=== PATIENT | female | born 1935 | race Caucasian/White ===

== ENCOUNTER → 2016-09-07 | Outpatient (CLI) | payer MEDICARE, OTHER ==
[2016-03-17 17:47] VITALS: BP 153/75
[~2016-09-07] MED LIST: ACET-704 PO
[2016-09-07 12:35] LABS: BACTERIA,URINE 0 /HPF (0-FEW); BILIRUBIN,URINE NEG (NEG); CLARITY,URINE CLEAR; COLOR,URINE AMBER; GLUCOSE,URINE NEG (NEG); NITRITE,URINE NEG (NEG); RBC,URINE RARE /HPF (0-2); SQUAMOUS EPITHELIAL CELL,UR OCC /LPF; UROBILINOGEN,URINE 1 mg/dL (0.2 mg/dL); WBC,URINE 0 /HPF (0-4)
== END | disposition home or self-care (01) ==
LOC: SPEC 12:05
PROVIDERS: ATTEND Internal Medicine
DX: Z00.01 Encounter for general adult medical examination with abnormal findings (principal); N39.0 Urinary tract infection, site not specified
CPT/HCPCS: 81001

== ENCOUNTER → 2016-11-16 | Outpatient (CLI) | payer MEDICARE, OTHER ==
[2016-03-17 17:47] VITALS: BP 153/75
--- NOTE | 2016-11-16 11:54 | RAD ---
Indication pain associated with a fall. AP and lateral views of the right femur were obtained. There is some slight degenerative change at the hip. No fracture or acute bony finding involving the femur is seen. Total knee prosthesis is noted. IMPRESSION: No acute bony finding seen associated with the right femur
== END | disposition home or self-care (01) ==
LOC: DXRAD 11:10
PROVIDERS: ATTEND Internal Medicine
DX: M79.604 Pain in right leg (principal); W19.XXXA Unspecified fall, initial encounter
CPT/HCPCS: 73552

== ENCOUNTER → 2016-11-30 | Outpatient (CLI) | payer MEDICARE, OTHER ==
[2016-03-17 17:47] VITALS: BP 153/75
[2016-11-30 08:14] LABS: ALBUMIN 3.6 g/dL (3.4-5.0); ALBUMIN/GLOBULIN RATIO 1.3 (1.0-1.7); CALCIUM 8.4 mg/dL (8.5-10.1); CREATININE 0.6 mg/dL (0.6-1.0); GFR 95.9; POTASSIUM 3.8 mmol/L (3.5-5.1); TOTAL BILIRUBIN 0.9 mg/dL (0.2-1.0); TOTAL PROTEIN 6.4 g/dL (6.4-8.2)
== END | disposition home or self-care (01) ==
LOC: SPEC 07:22
PROVIDERS: ATTEND Internal Medicine
DX: E78.5 Hyperlipidemia, unspecified (principal)
CPT/HCPCS: 36415; 80053; 80061

== ENCOUNTER → 2017-03-13 | Outpatient (CLI) | payer MEDICARE, OTHER ==
[2016-03-17 17:47] VITALS: BP 153/75
== END | disposition home or self-care (01) ==
LOC: SPEC 12:03
PROVIDERS: ATTEND Internal Medicine
DX: E63.9 Nutritional deficiency, unspecified (principal); E78.5 Hyperlipidemia, unspecified
CPT/HCPCS: 84443

== ENCOUNTER → 2019-01-09 | Outpatient (CLI) | payer MEDICARE, OTHER ==
[2016-03-17 17:47] VITALS: BP 153/75
--- NOTE | 2019-01-10 00:19 | RAD ---
Left shoulder 3 views. HISTORY: Left shoulder pain 3 views were taken of the left shoulder. There is no fracture or dislocation. There are granulomatous calcifications in the left lung. Scapula appears intact. There is no acute osseous abnormality. IMPRESSION: 1. No fracture or dislocation or acute osseous abnormality noted in the left shoulder. Electronically signed by: Gregory Kaur MD (01/10/2019 12:16 AM) [facility]
== END | disposition home or self-care (01) ==
LOC: DXRAD 14:18
PROVIDERS: ATTEND Internal Medicine
DX: M25.512 Pain in left shoulder (principal); W19.XXXA Unspecified fall, initial encounter; Y93.89 Activity, other specified; Y92.89 Other specified places as the place of occurrence of the external cause; Y99.8 Other external cause status
CPT/HCPCS: 73030

== ENCOUNTER 2019-12-02 15:17 | Inpatient (IN) | payer MEDICARE, OTHER ==
[~2019-12-02] VITALS: Ht 165.1 cm; Wt 57.6 kg
[~2019-12-02 15:17] MED LIST changes: +ACET12.53 PO; +ALBU2.5V8 IH; +AMIO400T5 PO; +APIX5TAB3 PO; +ASPI-630 PO; +BENZ100C PO; +CALC500O PO; +CARB15DR3 EACHEYE; +CHOL5POW PO; +GUAI100L34 PO; +HYPR10GE OP; +IBRU140C PO; +IPRA0.2S5 NEB; +LACT1CAP21 PO; +LEVO25TA4 PO; +LISI2.5T PO; +MAG355OR11 PO; +MAGN500C10 PO; +METO-239 PO; +NYST1000 PO; +ONDA-84 PO; +PANT40TA3 PO; +PHEN32.424 PO; +POLY15DR27 EACHEYE; +PROP15DR40 EACHEYE; +SIMV20TA18 PO; +SPIR25TA5 PO; +TRIA15OI TP
[2019-12-02 15:47] VITALS: BP 147/92
[2019-12-02 16:37] LABS: BASO # 0.1 x10^3/uL (0.0-0.2); BASO % 0 % (0-3); EOS % 0 % (0-3); HEMATOCRIT 45.8 % (36.0-47.0); HEMOGLOBIN 14.8 g/dL (12.0-15.5); LYMPH # 15.7 x10^3/uL (1.0-4.8); LYMPH % 47 % (24-48); MEAN CORPUSCULAR HEMOGLOBIN 32 pg (25-35); MEAN CORPUSCULAR HGB CONC 32 g/dL (31-37); MEAN CORPUSCULAR VOLUME 99 fL (79-100); MONO # 0.9 x10^3/uL (0.0-1.1); MONO % 3 % (0-9); NEUT # 16.8 x10^3uL (1.8-7.7); NEUT % 50 % (31-73); PLATELET COUNT 44 x10^3/uL (140-400); RED BLOOD COUNT 4.61 x10^6/uL (3.50-5.40); WHITE BLOOD COUNT 33.5 x10^3/uL (4.0-11.0)
[2019-12-02 16:46] LABS: CALCIUM 7.4 mg/dL (8.5-10.1); CREATININE 1.6 mg/dL (0.6-1.0); GFR 30.7; POTASSIUM 3.9 mmol/L (3.5-5.1)
[2019-12-02 16:52] LABS: ALBUMIN 1.9 g/dL (3.4-5.0); ALBUMIN/GLOBULIN RATIO 0.8 (1.0-1.7); MAGNESIUM 1.4 mg/dL (1.8-2.4); TOTAL BILIRUBIN 1.9 mg/dL (0.2-1.0); TOTAL PROTEIN 4.3 g/dL (6.4-8.2)
--- NOTE | 2019-12-02 17:28 | NUR ---
NURSING NOTE ADMIT PT DIRECT ADMIT TO ROOM 111 FOR DX OF FUNGEMIA. UPON ARRIVAL, PT IS VERY PALE, WEAK, LETHARGIC. DR ESCOBAR HERE TO EVALUATE PT. PT HAS OPEN COCCYX WOUND, WOUND CARE CONSULTED. PT ALSO HAS RASH ALL OVER ABD, PHOTOS IN CHART. PT FEET HAVE MOTTLING LIKE DISCOLORATION. DR ESCOBAR NOTIFIED. PT IS A&O X3 UPON ARRIVAL WITH HX OF CONFUSION AND DEMENTIA. PT HAS OCONNOR UPON ARRIVAL FOR RETENTION DATED 11-23. PT REPORTS FLU SHOT UTD AND THAT SHE GOT IT AT THE MOTHER HOUSE. GUILLERMO BURGOS.
[2019-12-02 17:29] LABS: % BANDS 2 % (0-9); % LYMPHS 53 % (24-48); % MONOS 3 % (0-10); % SEGS 42 % (35-66)
[2019-12-02 17:30] LABS: PLT ESTIMATE DECREASED (ADEQUATE)
--- NOTE | 2019-12-02 17:30 | NUR ---
Wound Care Wound Type/Assessment: patient has a stage 3 pressure ulcer to the coccyx. The area was cleaned with the cleansing wipes and A & D ointment applied at this time. Treatment Recommendations/Plan: Recommendations of A & D ointment Offloading surface/device: Recommendations of a P500 bed, Turn patient every 2 hours with the wedge or pillows and float the heels. Discharge Recommendations for dressings: Recommendations of continuing with the barrier cream Notified GUILLERMO Moya about the POC.
[2019-12-02] MEDS ORDERED: FIDA200T PO (18:06)
[2019-12-02] MEDS ORDERED: CHOL200044 PO (18:06)
[2019-12-02] MEDS ORDERED: CEFD300C PO (18:06)
[2019-12-02] MEDS ORDERED: AMIO200T4 PO (18:06)
[2019-12-02] MEDS ORDERED: DIPH25TA64 PO (18:06)
[2019-12-02] MEDS ORDERED: TORS20TA2 PO (18:06)
[2019-12-02] MEDS ORDERED: HYDR28.423 TP (18:06)
[2019-12-02] MEDS ORDERED: POLY17PO5 PO (18:06)
[2019-12-02] MEDS ORDERED: POTA20TA4 PO (18:06)
[2019-12-02] MEDS ORDERED: BISA10SU4 RC (18:06)
[2019-12-02] MEDS ORDERED: MIDO10TA PO (18:06)
[2019-12-02] MEDS ORDERED: PHEN32.424 PO (18:16)
[2019-12-02] MEDS ORDERED: BISACODYL 10 MG SUPP.RECT RC PRN (19:00)
[2019-12-02] MEDS ORDERED: BENZONATATE 100 MG CAPSULE. PO PRN (19:00)
[2019-12-02] MEDS ORDERED: POLYETHYLENE GLYCOL 3350 17 GM PACKET. PO PRN (19:00)
[2019-12-02] MEDS ORDERED: ACETAMINOPHEN/CODEINE 300/30MG TABLET PO PRN (19:00)
[2019-12-02] MEDS ORDERED: diphenhydrAMINE HCL 25 MG CAPSULE PO PRN (19:15)
[2019-12-02] MEDS ORDERED: HYDROCORTISONE 1% TOPICAL CREAM 30GM TUBE. TP PRN (19:15)
[2019-12-02 20:08] VITALS: BP 109/74
[2019-12-02] MEDS: APIXABAN 5 MG TABLET. PO SCH (21:26)
[2019-12-02] MEDS: LACTOBACILLUS RHAMNOSUS GG 1 CAPSULE. PO SCH (21:26)
[2019-12-02] MEDS: VITS A & D/LANOLIN TOPICAL OINTMENT 42GM TUBE. TP SCH (21:27)
[2019-12-02] MEDS: PHENobarbital 32.4 MG TABLET. PO SCH (21:27)
[2019-12-02] MEDS: FIDAXOMICIN 200 MG TABLET PO SCH (22:10)
--- NOTE | 2019-12-03 02:39 | HP ---
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 diff colitis. She also had acute on chronic kidney injury, hyponatremia, lactic acidosis and was treated with oral vancomycin. Her urine culture has grown also Escherichia coli, for which she was getting Rocephin. She has improved. Her kidney function has further improved. In fact, on the day of discharge on 11/28/2019, BUN was 27, creatinine 1.2 from a creatinine of 2.2. Her potassium also improved; however, her sodium continued to fluctuate and mostly on the lower side. Her urine culture has grown greater than 100,000 colony forming units per mL of Gram-negative rods identified as Escherichia coli. The E. coli was sensitive to oral antibiotic and her diarrhea has subsided. She has formed large stool on the day of discharge and there she remained hemodynamically stable and afebrile, a decision was made to discharge her back to continue on oral vancomycin 4 times for 2 weeks. Continue obviously with probiotic cholestyramine to finish treatment of her Escherichia coli with cefdinir 300 mg twice a day for 5 more days. The fpc called and stated that she is growing yeast in her blood and would like her to be admitted directly to the hospital and therefore, she was admitted; however, the only culture that we have received from ____ [facility] is growth of Fusobacterium, which basically is probably some form of anaerobic bacteria, which is definitely not a yeast infection. The patient herself did not voice any concern. PAST MEDICAL HISTORY: Significant for chronic lymphatic leukemia, chronic constipation, COPD, heart disease, degenerative arthritis, essential hypertension, ischemic cardiomyopathy and mild dementia. PAST SURGICAL HISTORY: Unremarkable. ALLERGIES: She has multiple allergies including TYLENOL, DOXYCYCLINE, HYDROCODONE, MORPHINE, NAPROXEN, PENTAZOCINE, TRAMADOL and the exact reactions are unclear. MEDICATIONS: She is currently on following medications: She is on diphenhydramine 50 mg tablet every 6 hours as needed, cefdinir 300 mg twice a day, fidaxomicin for Dificid 200 mg twice a day, ibrutinib 140 mg 3 capsules p.o. daily with lunch, midodrine 10 mg 3 times a day, apixaban 5 mg twice a day, amiodarone 200 mg once a day, aspirin 81 mg once a day, acetaminophen/codeine 300/12.5 takes 12.5 mL every 6 hours, phenobarbital 64.8 mg once a day, potassium chloride 20 mEq once a day, furosemide 20 mg once a day, benzonatate 100 mg twice a day, bisacodyl 10 mg suppositories rectally daily p.r.n. for constipation, polyethylene glycol 17 grams daily as needed for constipation, Protonix 40 mg once a day, lactobacillus rhamnosus ____ 1 capsule once a day, hydrocortisone/aloe vera applied topically as needed every 8 hours for itching, cholecalciferol/vitamin D3 50 mcg once a day. REVIEW OF SYSTEMS: As per history of present illness. PHYSICAL EXAMINATION: GENERAL: When I examined her this afternoon, she was resting slightly propped up in bed, in no apparent distress. There is no pallor, jaundice, cyanosis or thyromegaly. No jugular venous distention. She has mild bilateral lower extremity edema. VITAL SIGNS: Her heart rate was 83, blood pressure was 147/92, temperature 97.8, respiratory rate was 20, and oxygen saturation was 96% on room air. HEAD, EYES, EARS, NOSE AND THROAT: Showed normocephalic, atraumatic. NECK: Supple. HEART: Showed normal first and second heart sounds with no gallop, rub or murmur. CHEST: Clear to auscultation. No crepitation or rhonchi. ABDOMEN: Distended, soft, nontender. NEUROLOGIC: She is demented, but without any obvious lateralizing sign. All cranial nerves intact. She moves upper extremities to much good extent than the lower extremities. She is mostly bedbound. LABORATORY DATA: Her lab work essentially on arrival showed a white cell count of 33,500, hemoglobin 14.8, hematocrit 45.8, MCV 99 and platelet count of 44,000. Her chemistry again showed her serum sodium was 127, potassium 3.9, chloride 91, bicarbonate 26, anion gap of 10, BUN 25, creatinine 1.6, estimated GFR was 30 mL per minute. Her glucose was 114, calcium was 7.4, magnesium was 1.4. Total bilirubin, AST, ALT, alkaline phosphatase are elevated. Total protein was 4.3, albumin was 1.9. 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 ASSESSMENT AND PLAN: Given the fact that the patient has continued to have these treatments for her C. diff colitis, I will start her on IV Flagyl to continue treatment of her C. diff colitis and/or treatment of her anaerobic bacteria. Her other problems include obviously her hyponatremia and markedly deranged liver enzymes. She has obviously chronic lymphatic leukemia with white cell count of 33,500 and thrombocytopenia. ADONIS ESCOBAR MD DR: MARISOL/meron JOB#: [id number] / [id number]
--- NOTE | 2019-12-03 05:38 | NUR ---
PT incontinent x1 throughout night. Stat Lock applied to Mejia to left thigh. A&D ointment applied after cleaning and tab brief applied loosely. PT lethargic but able to participate in care. PT able to swallow pills whole, one at a time.
[2019-12-03 06:14] LABS: HEMATOCRIT 41.9 % (36.0-47.0); RED BLOOD COUNT 4.3 x10^6/uL (3.50-5.40); RED CELL DISTRIBUTION WIDTH 16.2 % (11.5-14.5); WHITE BLOOD COUNT 29.7 x10^3/uL (4.0-11.0)
[2019-12-03 06:29] VITALS: BP 88/52
[2019-12-03 06:30] LABS: ALBUMIN 1.7 g/dL (3.4-5.0); ALBUMIN/GLOBULIN RATIO 0.8 (1.0-1.7); CALCIUM 7.1 mg/dL (8.5-10.1); CREATININE 1.3 mg/dL (0.6-1.0); POTASSIUM 3.4 mmol/L (3.5-5.1); TOTAL BILIRUBIN 1.9 mg/dL (0.2-1.0); TOTAL PROTEIN 3.8 g/dL (6.4-8.2)
[2019-12-03] MEDS: MIDODRINE 5 MG TABLET PO SCH ×3 (06:33→18:02)
[2019-12-03] MEDS: CHOLECALCIFEROL (VITAMIN D3) 1,000 UNIT TABLET PO SCH (08:07)
[2019-12-03] MEDS: ASPIRIN CHEWABLE 81 MG TABLET. PO SCH (08:07)
[2019-12-03] MEDS: PANTOPRAZOLE 40 MG TABLET. PO SCH (08:07)
[2019-12-03] MEDS: POTASSIUM CHLORIDE 20 MEQ TABLET.ER. PO SCH (08:08)
[2019-12-03] MEDS: VITS A & D/LANOLIN TOPICAL OINTMENT 42GM TUBE. TP SCH ×2 (08:08→21:34)
[2019-12-03] MEDS: LACTOBACILLUS RHAMNOSUS GG 1 CAPSULE. PO SCH ×2 (08:08→21:34)
[2019-12-03] MEDS: FIDAXOMICIN 200 MG TABLET PO SCH ×2 (08:09→21:34)
[2019-12-03] MEDS: APIXABAN 5 MG TABLET. PO SCH (08:09)
[2019-12-03 08:14] VITALS: BP 96/66
--- NOTE | 2019-12-03 09:26 | RAD ---
EXAM: Abdomen sonogram. HISTORY: Abnormal liver function laboratory values. TECHNIQUE: Sonographic imaging of the abdomen was performed. COMPARISON: None. FINDINGS: The liver is normal in size. There is a 1.9 cm hypoechoic lesion within the right hepatic lobe. There is no convincing blood flow associated with this lesion. The common bile duct is normal in caliber. The gallbladder surgically absent. The right kidney is normal in size. There is a 1.4 cm simple appearing right renal cyst. There is no hydronephrosis. The pancreas and inferior vena cava are obscured due to bowel gas. IMPRESSION: 1. 1.9 cm hypoechoic lesion within the right hepatic lobe. There is no convincing blood flow within this lesion. However, the possibility that this is a solid mass is not excluded. Further evaluation with a liver protocol CT or MRI is recommended. 2. Small simple right renal cyst. Follow-up is not routinely recommended for simple cysts. 3. Limited exam due to bowel gas. The midline structures are obscured. 4. Cholecystectomy. Electronically signed by: Dawna Neal MD (12/03/2019 9:23 AM) [id number]
[2019-12-03 10:03] VITALS: BP 105/66
[2019-12-03] MEDS: AMIODARONE HCL 200 MG TABLET PO SCH (10:03)
--- NOTE | 2019-12-03 10:49 | NUR ---
NURSING NOTE SPOKE WITH GUILLERMO OCHOA FROM [facility], PT SEEN DR LIPSCOMB IN OFFICE AND WAS SPOKE TO ABOUT HOSPICE CARE PRIOR TO ADMISSION FOR TREATMENT OF INFECTION WITH DR LIPSCOMB. AT THAT TIME, PT DID NOT WANT TO FOLLOW THROUGH WITH HOSPICE. HOWEVER, GUILLERMO OCHOA FROM [facility] STATES THAT PT HAS BEEN DECLINING AND THAT IF DR ESCOBAR THINKS SHE NEEDS TO HAVE MORE END OF LIFE CARE AND HOSPICE CONSULT TO LET HER KNOW UPON DISCHARGE AND SHE WILL SPEAK WITH SISTER BLAISE WYNN ABOUT IT. CASE MANAGEMENT NOTIFIED. GUILLERMO BURGOS.
[2019-12-03] MEDS ORDERED: IBRUTINIB 420 MG PO SCH (12:00)
[2019-12-03 15:05] VITALS: BP 102/71
--- NOTE | 2019-12-03 15:50 | NUR ---
NURSING NOTE SPOKE WITH GABRIELA LI FROM [facility] FOR UPDATE. UPON ROUNDING WITH DR ESCOBAR, PT WAS ASKED ABOUT HER WISHES AND WHAT SHE WOULD LIKE FAR TREATMENT. PT STATED THAT SHE DID NOT WANT HOSPICE AND SHE FELT SHE WAS NOT READY FOR THAT YET. PER DR ESCOBAR, PT WILL STAY AND CONTINUE ON IV ANTIBIOTICS FOR TREATMENT OF BACTERIA INFECTION WELL CDIFF TREATMENT. PT EXTREMITIES ARE COLD, PT SKIN COLOR IS DUSKY, PT VERBALIZED NO PAIN AND STATES SHE FEELS OVERALL GOOD AT THIS TIME. VITALS STABLE AT THIS TIME. GUILLERMO OCHOA ASKED IF ONE OF THE COUNCILORS COULD COME AND ASSESS HER AND SPEAK WITH HER, NOTIFIED NURSING CONTACT LENS INSPECTOR D/T COVID VISITOR RESTRICTIONS AND APPROVED FOR BLENDING TANK TENDER TO COME IN AND SEE PT. WILL CONTINUE TO MONITOR. GUILLERMO BURGOS.
--- NOTE | 2019-12-03 16:46 | NUR ---
NURSING NOTE PT SISTER FROM [place] CALLED WITH [employer] AND REQUEST FOR UPDATE. PT SISTER STATES SHE WASN'T EATING MUCH AND LEFT A LIST OF FOODS THAT SHE LIKES: TOMATO JUICE WAFFLES FRECH TOAST GRILL CHEESE GABRIEL CHICKEN NOODLE SOUP LORETTA RN
--- NOTE | 2019-12-03 17:06 | NUR ---
NURSING NOTE DR VIEYRA CANCER ATTEMPT TO CALL DR VIEYRA CANCER OFFICE AT [phone] TO SPEAK TO THEM ABOUT HER IMBRUVICA MEDICATION AND THE PATIENTS PLT COUNT THAT IS DECREASING. OFFICE CLOSED. PER DR ESCOBAR, DO NOT NEED TO PAGE THEM, CAN CALL BACK TOMORROW MORNING AND SPEAK TO THEM. GUILLERMO BURGOS.
--- NOTE | 2019-12-03 18:48 | PN ---
DATE: 12/03/2019 SUBJECTIVE: The patient is resting flat in bed, in no apparent respiratory distress. She is awake, alert. On questioning her, denied any complaint. She has no diarrhea. She is afebrile. Her blood pressure is borderline low and she is getting midodrine for that. Her lab work showed her white cell count is high obviously at 20 due to chronic lymphatic leukemia. Her chemistry continues to show that she has hyponatremia. Her kidney function is slightly better. Her liver enzymes are elevated; however, abdominal ultrasound showed no evidence of cholecystitis or cholelithiasis. PHYSICAL EXAMINATION: GENERAL: When I examined her, there was no pallor, jaundice or cyanosis. No lymphadenopathy, no thyromegaly. No jugular venous distention. Does have mild bilateral lower limb edema. VITAL SIGNS: Her heart rate was 83, blood pressure was 102/71, temperature was 97.6, respiratory rate was 18 and oxygen saturation was 99%. HEAD, EYES, EARS, NOSE, AND THROAT: Showed normocephalic, atraumatic. NECK: Supple. CARDIAC: Normal first and second heart sounds. No gallop, rub or murmur. CHEST: Clear to auscultation. No crepitation or rhonchi. ABDOMEN: Distended, soft, nontender. NEUROLOGIC: She is awake, alert, responding appropriately. All cranial nerves are intact. She moves upper extremities to much greater extent than lower extremities. She is mostly bed bound. She requires 2-person assist to transfer from bed to chair and vice versa. Her intake was 720, output was 450. LABORATORY DATA: As of this morning, her white cell count was 29,700, hemoglobin 14, hematocrit 42, MCV 98 and platelet count of 34,000. Her chemistry showed serum sodium of 126, potassium 3.4, chloride 91, bicarbonate 24, anion gap of 11, BUN 30, creatinine 1.3, estimated GFR was 39 mL per minute. Her glucose was 97, calcium was 7.1. Total bilirubin, AST, ALT, alkaline phosphatase are elevated, although they are trending down. Her total protein was 3.8, albumin was 1.7. ASSESSMENT: In summary, this is an 84-year-old female patient who was admitted directly from [facility]. The nurses stated that she has a fungal infection in her blood. However, the culture was growing Fusobacterium, which is an anaerobic bacteria and therefore, she was started on IV Flagyl. It should take care of the anaerobic bacteremia as well as continue treatment of her C. diff colitis. She has hyponatremia that is chronic. Her acute on chronic kidney injury impaired liver enzymes and the picture consistent with obstructive jaundice. However, her abdominal ultrasound was unremarkable. She has chronic lymphatic leukemia and worsening thrombocytopenia. Her ____ has dropped down from 174 on 11/23 down to 34 this morning. Other problems include severe protein-calorie malnutrition, serum albumin is only 1.7 mg/dL. Given the multitude of comorbidities, we have discussed with the patient the option of hospice care, but the patient is adamant that she is not there and she would like to continue with aggressive treatment. ADONIS ESCOBAR MD DR: MARISOL/meron JOB#: [id number] / [id number]
[2019-12-03 20:04] VITALS: BP 95/64
[2019-12-03] MEDS: APIXABAN 2.5 MG TABLET PO SCH (21:34)
[2019-12-03] MEDS: PHENobarbital 32.4 MG TABLET. PO SCH (21:34)
[2019-12-03 22:13] VITALS: BP 104/73
[2019-12-04 05:36] VITALS: BP 101/67
[2019-12-04] MEDS: MIDODRINE 5 MG TABLET PO SCH ×3 (06:00→18:00)
[2019-12-04] MEDS: APIXABAN 2.5 MG TABLET PO SCH ×2 (07:37→21:10)
[2019-12-04] MEDS: LACTOBACILLUS RHAMNOSUS GG 1 CAPSULE. PO SCH ×2 (07:37→21:10)
[2019-12-04] MEDS: CHOLECALCIFEROL (VITAMIN D3) 1,000 UNIT TABLET PO SCH (07:37)
[2019-12-04] MEDS: ASPIRIN CHEWABLE 81 MG TABLET. PO SCH (07:37)
[2019-12-04] MEDS: POTASSIUM CHLORIDE 20 MEQ TABLET.ER. PO SCH (07:38)
[2019-12-04] MEDS: PANTOPRAZOLE 40 MG TABLET. PO SCH (07:38)
[2019-12-04] MEDS: AMIODARONE HCL 200 MG TABLET PO SCH (07:38)
[2019-12-04] MEDS: VITS A & D/LANOLIN TOPICAL OINTMENT 42GM TUBE. TP SCH ×2 (07:40→21:00)
[2019-12-04] MEDS: FIDAXOMICIN 200 MG TABLET PO SCH ×2 (07:43→21:11)
[2019-12-04 07:53] LABS: HEMATOCRIT 45.2 % (36.0-47.0); HEMOGLOBIN 14.9 g/dL (12.0-15.5); RED BLOOD COUNT 4.6 x10^6/uL (3.50-5.40); RED CELL DISTRIBUTION WIDTH 16.9 % (11.5-14.5); WHITE BLOOD COUNT 31.8 x10^3/uL (4.0-11.0)
[2019-12-04 07:56] LABS: CALCIUM 7.4 mg/dL (8.5-10.1); CREATININE 1.5 mg/dL (0.6-1.0); GFR 33.1; POTASSIUM 4.5 mmol/L (3.5-5.1)
[2019-12-04 07:59] LABS: MAGNESIUM 1.5 mg/dL (1.8-2.4)
--- NOTE | 2019-12-04 08:30 | NUR ---
IP: patient currently in treatment for c diff, requires contact + precautions.
--- NOTE | 2019-12-04 08:36 | NUR ---
DR VIEYRA'S OFFICE CALLED AND NOTIFIED OF PTS LOW PLATELET COUNT OF 40. TELEPHONE ORDER RECEIVED TO HOLD IMBRUVICA UNTIL FOLLOW UP WITH DR. VIEYRA. PATIENT IS TO FOLLOW UP ONE WEEK AFTER DISCHARGE FROM [facility]. ORDER ENTERED.
--- NOTE | 2019-12-04 08:41 | NUR ---
DR. JEAN BAPTISTE'S OFFICE CALLED CONCERNING PT'S ELEQUIS PRESCRIPTION. SPOKE TO NURSE AT DR. CHANCE OFFICE, NURSE STATES PATIENTS CHART SHOWS HISTORY OF AFIB.
[2019-12-04 11:21] VITALS: BP 117/80
--- NOTE | 2019-12-04 13:20 | PN ---
DATE: 12/04/2019 ATTENDING PHYSICIAN: Dr. Barfield. CHIEF COMPLAINT: Positive blood cultures. SUBJECTIVE: The patient is pleasantly confused. She says her diarrhea has improved. She has no new complaints. OBJECTIVE FINDINGS: VITAL SIGNS: Blood pressure today is 101/67, pulse is 81 and regular, temperature 97.6 degrees Fahrenheit, oxygen saturation 96% on room air. HEENT: Head is without trauma. Pupils are reactive. Sclerae are nonicteric. Oropharynx is clear. NECK: Supple, no bruits identified. LUNGS: Shallow respirations, but clear. ABDOMEN: Soft. EXTREMITIES: Without edema. NEUROLOGIC: Pleasantly confused. LABORATORY STUDIES: Sodium was 127, which is about baseline for her. Creatinine 1.5 mg/dL. Hemoglobin is 14.9 grams with a white count of 31,000, which is diminished from her last count, platelets are 40,000. There is no active bleeding. ASSESSMENT: 1. 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 2. 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 3. Chronic lymphocytic leukemia. 4. Concomitant thrombocytopenia without active bleeding. 5. Hyponatremia, chronic. 6. Dementia. PLAN: 1. Continue IV Flagyl as ordered. 2. Serial CBCs. 3. Diet as tolerated. 4. Home meds reviewed. 5. Discharge planning. She can be switched over to oral Flagyl when stable. CHUNG MARI MD DR: KASEY/meron JOB#: [id number] / [id number]
[2019-12-04 15:48] VITALS: BP 114/77
[2019-12-04 19:36] VITALS: BP 115/86
[2019-12-04] MEDS: PHENobarbital 32.4 MG TABLET. PO SCH (21:10)
[2019-12-04 22:28] VITALS: BP 107/70
[2019-12-05 05:52] VITALS: BP 105/67
[2019-12-05] MEDS: MIDODRINE 5 MG TABLET PO SCH ×3 (06:19→17:29)
[2019-12-05] MEDS: AMIODARONE HCL 200 MG TABLET PO SCH (08:19)
[2019-12-05] MEDS: LACTOBACILLUS RHAMNOSUS GG 1 CAPSULE. PO SCH ×2 (08:19→21:04)
[2019-12-05] MEDS: POTASSIUM CHLORIDE 20 MEQ TABLET.ER. PO SCH (08:19)
[2019-12-05] MEDS: CHOLECALCIFEROL (VITAMIN D3) 1,000 UNIT TABLET PO SCH (08:19)
[2019-12-05] MEDS: APIXABAN 2.5 MG TABLET PO SCH ×2 (08:19→21:04)
[2019-12-05] MEDS: ASPIRIN CHEWABLE 81 MG TABLET. PO SCH (08:19)
[2019-12-05] MEDS: PANTOPRAZOLE 40 MG TABLET. PO SCH (08:19)
[2019-12-05] MEDS: FIDAXOMICIN 200 MG TABLET PO SCH ×2 (08:20→21:04)
[2019-12-05] MEDS: VITS A & D/LANOLIN TOPICAL OINTMENT 42GM TUBE. TP SCH ×2 (08:54→21:06)
[2019-12-05 10:46] VITALS: BP 103/65
--- NOTE | 2019-12-05 12:32 | PN ---
DATE: SUBJECTIVE: No new complaints. She wants to go home. OBJECTIVE FINDINGS: She had a positive blood culture growing out Fusobacterium. Her diarrhea from C. diff has subsided and she is doing well. VITAL SIGNS: Blood pressure today is 103/65 mmHg, temperature 97.6, pulse 80 and regular, oxygen saturation 96% on room air. HEENT: Head is without trauma. Pupils are reactive. Sclerae nonicteric. Oropharynx clear. NECK: Supple, no bruits. LUNGS: Otherwise clear. CARDIOVASCULAR: Showed regular heart tones. ABDOMEN: Soft, no guarding, no masses. EXTREMITIES: Without edema. NEUROLOGIC: Focally intact, pleasantly confused. CBC is ordered for tomorrow. Her platelet count yesterday was 40,000 per cubic cm. No active bleeding. ASSESSMENT: 1. 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 2. Recent recurrent episodes of Clostridium difficile. 3. Escherichia coli urinary tract infection. 4. Underlying chronic lymphocytic leukemia. 5. Concomitant thrombocytopenia due to treatment. 6. Dementia. 7. Chronic obstructive pulmonary disease. PLAN: 1. Continue IV Flagyl 1 more day. 2. Follow up CBC and platelet count in the morning. 3. Continue home meds. 4. Diet as tolerated. CHUNG MARI MD DR: KASEY/meron JOB#: [id number] / [id number]
[2019-12-05 15:23] VITALS: BP 105/62
[2019-12-05 19:45] VITALS: BP 107/59
[2019-12-05] MEDS: PHENobarbital 32.4 MG TABLET. PO SCH (21:04)
[2019-12-06 06:03] VITALS: BP 106/66
[2019-12-06] MEDS: MIDODRINE 5 MG TABLET PO SCH ×2 (06:04→13:56)
--- NOTE | 2019-12-06 06:35 | NUR ---
Pt had one soft, formed stool this shift. A&D ointment applied to coccyx with each turn. Pt tolerated q2hr turns fair.
[2019-12-06] MEDS: CHOLECALCIFEROL (VITAMIN D3) 1,000 UNIT TABLET PO SCH (08:07)
[2019-12-06] MEDS: PANTOPRAZOLE 40 MG TABLET. PO SCH (08:07)
[2019-12-06] MEDS: ASPIRIN CHEWABLE 81 MG TABLET. PO SCH (08:07)
[2019-12-06] MEDS: POTASSIUM CHLORIDE 20 MEQ TABLET.ER. PO SCH (08:08)
[2019-12-06] MEDS: LACTOBACILLUS RHAMNOSUS GG 1 CAPSULE. PO SCH (08:08)
[2019-12-06] MEDS: FIDAXOMICIN 200 MG TABLET PO SCH (08:08)
[2019-12-06] MEDS: APIXABAN 2.5 MG TABLET PO SCH (08:08)
[2019-12-06] MEDS: AMIODARONE HCL 200 MG TABLET PO SCH (08:08)
[2019-12-06] MEDS: VITS A & D/LANOLIN TOPICAL OINTMENT 42GM TUBE. TP SCH (08:09)
[2019-12-06 10:06] LABS: BASO # 0.1 x10^3/uL (0.0-0.2); BASO % 0 % (0-3); EOS % 0 % (0-3); HEMATOCRIT 50.5 % (36.0-47.0); HEMOGLOBIN 15.6 g/dL (12.0-15.5); LYMPH # 17.8 x10^3/uL (1.0-4.8); LYMPH % 45 % (24-48); MEAN CORPUSCULAR HEMOGLOBIN 32 pg (25-35); MEAN CORPUSCULAR HGB CONC 31 g/dL (31-37); MEAN CORPUSCULAR VOLUME 104 fL (79-100); MONO # 1.6 x10^3/uL (0.0-1.1); MONO % 4 % (0-9); NEUT # 20.2 x10^3uL (1.8-7.7); NEUT % 51 % (31-73); PLATELET COUNT 54 x10^3/uL (140-400); RED BLOOD COUNT 4.85 x10^6/uL (3.50-5.40); RED CELL DISTRIBUTION WIDTH 18.8 % (11.5-14.5); WHITE BLOOD COUNT 39.8 x10^3/uL (4.0-11.0)
[2019-12-06 11:07] VITALS: BP 114/69
[2019-12-06 13:56] VITALS: BP 114/69
--- NOTE | 2019-12-06 15:41 | NUR ---
Discharge Note: JOSH RAZA [facility] Discharge instructions and discharge home medications reviewed with Rosalee LI at [facility] for [facility] and a copy given and sent in folder with pt. All questions have been answered and understanding verbalized. Pt medication returned with pt. Medications include Imbruvica and Dificid. All belongings left with patient on discharge. Iv line discontined. Mejia in place on d/c d/t it being chronic and placed before arrival to hospital. Patient discharged to Home or Self Care with [facility] transportation service via Wheelchair into van.
--- NOTE | 2019-12-06 21:54 | DS ---
DATE OF DISCHARGE: 12/06/2019 ATTENDING PHYSICIAN: Dr. Barfield. FINAL DISCHARGE DIAGNOSES: 1. 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 2. Recurrent Clostridium difficile pseudomembranous colitis. 3. Escherichia coli urinary tract infection. 4. Chronic lymphocytic leukemia. 5. Concomitant thrombocytopenia due to treatment. 6. Dementia, chronic. 7. Chronic obstructive pulmonary disease. 8. Protein-calorie malnutrition and cachexia. 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 She has had several admissions for Clostridium difficile colitis. She was admitted then on this particular day with positive blood cultures growing fusobacterium and anaerobic species. She had generalized weakness and some hypotension consistent with the diagnosis. She was admitted for further treatment and evaluation. PHYSICAL EXAMINATION: Please see the dictated note. PERTINENT LABORATORY AND X-RAY STUDIES: Her sodium has also been chronically low at 127, followup 127 mEq per liter. She was asymptomatic. Potassium 4.5, creatinine is 1.5 mg/dL. Hemoglobin was maintained at 14.8 g/dL with a white count of 33,500. However, platelet count is diminished. It bottomed out at 34,000 on the second hospital day, repeated was up to 54,000 per cubic mL. There was no active bleeding. COURSE IN THE HOSPITAL: The patient received 4 full days of intravenous metronidazole without any problems. She did well. Blood pressure and vital signs remained stable. BP improved to 114/69. She remained afebrile. Oxygen saturation 97%. She is tolerating some oral fluids. Her diarrhea had subsided. On the fifth hospital day, her vital signs are stable. She was ready for discharge back to [facility], the convalescent unit at the ____. Therefore, she was sent home with Tylenol with Codeine p.r.n., amiodarone 200 mg p.o. daily, Eliquis 5 mg b.i.d., aspirin 81 mg daily, bisacodyl, diphenhydramine p.r.n., Dificid 200 mg b.i.d. till complete, Aloe vera, phenobarbital as prescribed 64.8 mg at bedtime, Protonix 40 mg daily, potassium supplementation 20 mEq daily, torsemide 20 mg daily and 6 more days of Flagyl 500 mg p.o. t.i.d. In the meantime, I have asked the facility to hold her Imbruvica, which is a monoclonal antibody given to treat lymphocytic leukemia. This is also causing her platelets to be diminished. They will contact her livestock ranch hand to request a clarification of continuation. In the meantime, because of diarrhea, I have held her MiraLax. She does not need this and we have held her lactobacillus and midodrine. She is a DNR per advanced directive. Her prognosis is fair. She was therefore discharged from our hospital in stable condition with explicit instructions and followup care. CHUNG MARI MD DR: KASEY/meron JOB#: [id number] / [id number] Yuly Romo
== END 2019-12-06 15:45 | disposition home or self-care (01) | DRG 371 ==
LOC: 1 SOUTH 15:17
PROVIDERS: ADMIT Internal Medicine; ATTEND Hospitalist
DX: A04.71 Enterocolitis due to Clostridium difficile, recurrent (principal); E43 Unspecified severe protein-calorie malnutrition; K83.1 Obstruction of bile duct; C91.10 Chronic lymphocytic leukemia of B-cell type not having achieved remission; E87.1 Hypo-osmolality and hyponatremia; E87.2 Acidosis; N17.9 Acute kidney failure, unspecified; R78.81 Bacteremia; D69.6 Thrombocytopenia, unspecified; F03.90 Unspecified dementia, unspecified severity, without behavioral disturbance, psychotic disturbance, mood disturbance, and anxiety; I12.9 Hypertensive chronic kidney disease with stage 1 through stage 4 chronic kidney disease, or unspecified chronic kidney disease; J44.9 Chronic obstructive pulmonary disease, unspecified; I25.5 Ischemic cardiomyopathy; N18.9 Chronic kidney disease, unspecified; K59.09 Other constipation; M19.90 Unspecified osteoarthritis, unspecified site; Z88.8 Allergy status to other drugs, medicaments and biological substances; B96.20 Unspecified Escherichia coli [E. coli] as the cause of diseases classified elsewhere; Z66 Do not resuscitate; Z74.01 Bed confinement status; Z68.21 Body mass index [BMI] 21.0-21.9, adult
CPT/HCPCS: 36415; 76705; 80048; 80053; 83735; 85007; 85025; 85027; J3490